=== PATIENT | female | born 1985 | race Caucasian/White ===

== ENCOUNTER 2016-10-03 13:17 | Emergency (ER) | payer OTHER ==
[~2016-10-03] VITALS: Ht 165.1 cm; Wt 88.5 kg
[2016-10-03] MEDS ORDERED: AMOXICILLIN500 M2 PO (13:46)
[2016-10-03] MEDS ORDERED: NAPROSYN500 MG PO (13:46)
== END 2016-10-03 14:08 | disposition home or self-care (01) ==
LOC: ED 13:17
DX: H66.92 Otitis media, unspecified, left ear (principal)